=== PATIENT | male | born 1995 | race Caucasian/White ===

== ENCOUNTER 2016-11-19 22:50 | Observation (INO) | payer MEDICAID ==
[~2016-11-19] VITALS: Ht 180.3 cm; Wt 63.5 kg
[~2016-11-19 22:50] MED LIST: IOHEXOL-300 100 ML BOTTLE ONE; SODIUM CHLORIDE 0.9% 10ML VIAL ONE
[2016-11-20] MEDS ORDERED: METOCLOPRAMIDE HCL 10MG/2ML VIAL IV STA (03:31)
[2016-11-20] MEDS ORDERED: FAMOTIDINE 20MG/2ML VIAL IV STA (03:31)
[2016-11-20] MEDS ORDERED: SODIUM CHLORIDE 0.9% 1,000 ML IV ONE (03:31)
[2016-11-20 03:48] LABS: CLARITY URINE CLEAR (CLEAR); COLOR URINE YELLOW (YELLOW); GLUCOSE URINE NEGATIVE (NEGATIVE); KETONES URINE 1+ (NEGATIVE); LEUKOCYTE ESTERASE URINE NEGATIVE (NEGATIVE); NITRITE URINE NEGATIVE (NEGATIVE); OCCULT BLOOD URINE 2+ (NEGATIVE); PH URINE 5.5 (4.5-8.0); PROTEIN URINE NEGATIVE (NEGATIVE); SPECIFIC GRAVITY URINE 1.034 (1.005-1.030)
[2016-11-20 03:50] LABS: BACTERIA URINE NONE SEEN; CALCIUM PHOSPHATE CRYSTALS UR NONE SEEN /lpf; SQUAMOUS EPITHELIAL CELL URINE NONE SEEN /lpf (RARE/1+); WAXY CASTS URINE NONE SEEN /lpf; WBC URINE NONE SEEN /hpf (0-2); YEAST URINE NONE SEEN
[2016-11-20] MEDS ORDERED: ONDANSETRON HCL 4MG/2ML VIAL IV ONE (04:00)
[2016-11-20] MEDS ORDERED: MORPHINE SULFATE 4 MG/ML CPJ (NOT FOR IM USE) IV ONE (04:00)
[2016-11-20 04:07] LABS: HEMATOCRIT. 42.2 % (42.0-52.0); HEMOGLOBIN. 14.1 g/dL (14.0-18.0); MEAN CORPUSCULAR HEMOGLOBIN 31.3 pg (28.0-32.0); MEAN CORPUSCULAR HGB CONC 33.5 g/dL (31.0-37.0); MEAN CORPUSCULAR VOLUME 93.3 fL (80.0-94.0); MEAN PLATELET VOLUME 7.7 fl (7.4-10.4); PLATELET 307 x1000/uL (130-400); RED BLOOD CELL COUNT 4.52 mill/uL (4.7-6.1); RED CELL DISTRIBUTION WIDTH 13.4 % (11.6-14.6); WHITE BLOOD COUNT 18.9 x1000/uL (4.5-11.0)
[2016-11-20 04:08] LABS: DIFFERENTIAL COMMENT 1; INR 1.1; PROTHROMBIN TIME 11.7 sec
[2016-11-20 04:16] LABS: ALANINE AMINOTRANSFERASE 51 IU/L (13-61); ALBUMIN 4.1 g/dL (3.4-5.0); ANION GAP 16; CARBON DIOXIDE 25 mEq/L (21-32); CHLORIDE 101 mEq/L (98-107); INDEX HEMOLYSI 1 (1-3); INDEX ICTERIC 1 (1-4); INDEX LIPEMIC 1 (1-3); LIPASE 87 IU/L (73-393); UREA NITROGEN BLOOD 12 mg/dL (7-21); eGFR > 60 mL/min (>60)
[2016-11-20] MEDS ORDERED: METRONIDAZOLE 500 MG PREMIX 100 ML IV ONE (07:45)
[2016-11-20] MEDS ORDERED: PIPERACILLIN/TAZ 3.375G PREMIX 50 ML IV ONE (07:45)
[2016-11-20 09:25] LABS: PLATELET ESTIMATE NORMAL
[2016-11-20] MEDS ORDERED: BUPIVACAINE HCL/PF 0.5% (5MG/ML) 10ML ONE (09:57)
[2016-11-20] MEDS ORDERED: SKIN ADHESIVE 0.7 GM EA TOP ONE (09:57)
[2016-11-20 12:15] VITALS: BP 126/82
[2016-11-20] MEDS ORDERED: SODIUM CHLORIDE 0.9% INJ 3ML FLUSH IVF SCH (14:00)
[2016-11-20] MEDS ORDERED: FENTANYL CITRATE/PF 50MCG/ML 2ML VIAL ONE (14:02)
[2016-11-20] MEDS ORDERED: MIDAZOLAM HCL 2 MG/2 ML VIAL ONE (14:02)
[2016-11-20] MEDS ORDERED: HYDROMORPHONE HCL/PF 2MG/ML CPJ IV PRN (14:30)
[2016-11-20] MEDS ORDERED: LABETALOL HCL 20MG/4ML CARPUJECT IV PRN (14:30)
[2016-11-20] MEDS ORDERED: ONDANSETRON HCL 4MG/2ML VIAL IV PRN (14:30)
[2016-11-20] MEDS ORDERED: MEPERIDINE HCL/PF 25MG/ML CPJ IV PRN (14:30)
[2016-11-20] MEDS ORDERED: ROCURONIUM BROMIDE 10MG/ML VIAL 5ML IV ONE (14:34)
[2016-11-20] MEDS ORDERED: PROPOFOL 200MG/20ML VIAL IV ONE (14:34)
[2016-11-20] MEDS ORDERED: LIDOCAINE HCL 1% 20ML VIAL (Pyxis) INJ ONE (14:34)
[2016-11-20] MEDS ORDERED: SUCCINYLCHOLINE CHLORIDE 200MG/10ML VIAL IV ONE (14:34)
[2016-11-20] MEDS ORDERED: NEOSTIGMINE METHYLSULFATE 1MG/ML 10 ML VIAL ONE (14:38)
[2016-11-20] MEDS ORDERED: GLYCOPYRROLATE 0.2 MG/ML 2ML VIAL ONE (14:38)
[2016-11-20] MEDS ORDERED: ONDANSETRON HCL 4MG/2ML VIAL ONE (14:38)
[2016-11-20] MEDS ORDERED: DEXAMETHASONE 4MG/ML 1ML VIAL ONE (14:38)
[2016-11-20] MEDS ORDERED: SODIUM CHLORIDE 0.9% 10ML VIAL ONE (14:55)
[2016-11-20] MEDS ORDERED: NALOXONE HCL 0.4 MG/ML 1ML VIAL ONE (14:55)
[2016-11-20] MEDS: ONDANSETRON HCL 4MG/2ML VIAL IV PRN ×2 (15:20→17:33)
[2016-11-20 16:00] VITALS: BP 110/62
[2016-11-20] MEDS ORDERED: DEXT 5%/0.45% NACL KCL 20MEQ/L 1,000 ML IV SCH (18:00)
[2016-11-20] MEDS ORDERED: MORPHINE SULFATE 2 MG/ML CPJ (NOT FOR IM USE) IV PRN (18:00)
[2016-11-20] MEDS ORDERED: HYDROCODONE/ACETAMINOPHEN 5/325MG TABLET PO PRN ×2 (18:00)
[2016-11-20] MEDS ORDERED: MORPHINE SULFATE 4 MG/ML CPJ (NOT FOR IM USE) IV PRN (18:00)
[2016-11-20 20:00] VITALS: BP 111/65
[2016-11-20 21:23] VITALS: BP 111/65
== END 2016-11-20 21:40 | disposition home or self-care (01) ==
LOC: ER 22:51 → INTOOBSV 11-20 09:10 → 6EST 11-20 09:10
PROVIDERS: ADMIT Surgery; ATTEND Surgery
DX: K37 Unspecified appendicitis (principal)
CPT/HCPCS: 36415; 44970; 71020; 74177; 80053; 81001; 83690; 85025; 85610; 88304; 96365; 96367; 96368; 96375; 96376; 99285; A4216; G0168; G0378; J0330; J1100; J2175; J2250; J2270; J2310; J2405; J2543; J2710; J2765; J3010; J3490; J7030; Q9967; J2704